=== PATIENT | female | born 1955 | race Caucasian/White ===

== ENCOUNTER 2020-09-14 18:37 | Emergency (ER) | payer MEDICARE, SELFPAY ==
--- NOTE | 2020-09-14 18:53 | ECG_ITS ---
Test Reason : WEAKNESS Blood Pressure : / mmHG Vent. Rate : 093 BPM Atrial Rate : 093 BPM P-R Int : 198 ms QRS Dur : 098 ms QT Int : 384 ms P-R-T Axes : 015 -14 -07 degrees QTc Int : 477 ms Normal sinus rhythm Moderate voltage criteria for LVH, may be normal variant Inferior infarct , age undetermined Abnormal ECG No previous ECGs available Referred By: Eva Castro Electronically Signed By:JEROME MG
--- NOTE | 2020-09-14 18:53 | ED.WEAKNESS ---
HPI - Weakness General Chief complaint: Weakness Stated complaint: MALAISE Time Seen by Provider: 09/14/20 18:46 Source: patient and EMS Mode of arrival: EMS Limitations: altered mental status History of Present Illness HPI Narrative: 65-year-old female diagnosed with ALS in July of 2020 presents with weakness, failure to thrive, and inability to care for herself. She lives at home with her 91-year-old mother who is her day care center director. Patient was diagnosed in July of 2020 with ALS, and has had a rapid progression of symptoms. Patient needs total care which has been provided by her mother. Patient states to be weak, extremely fatigued, and is answering questions in one-word answers. MD Complaint: generalized weakness and lack of energy Onset (ago): month(s) Duration: constant Location: generalized Severity: severe Relieving factors: none Context: other (ALS) Related Data Home Medications Medication Instructions Recorded Confirmed amlodipine 10 mg PO DAILY 09/14/20 09/14/20 conjugated estrogens [Premarin] 0.3 mg PO DAILY 09/14/20 09/14/20 lorazepam 1 mg PO BEDTIME PRN 09/14/20 09/14/20 paroxetine HCl 20 mg PO BEDTIME 09/14/20 09/14/20 Allergies Allergy/AdvReac Type Severity Reaction Status Date / Time No Known Allergies Allergy Verified 09/14/20 18:53 Review of Systems Review of Systems: Yes Unobtainable due to mental condition PMFSH Past Medical History Attestation statement: The following information was validated with the patient. Source: old records reviewed Medical History ALS (amyotrophic lateral sclerosis) Hypertension Social History Social History Alcohol intake: never Smoked in Last 30 Days: No Use of substances other than those prescribed or required for medical reasons: No Advance Directives: No Advance Directives Information Provided: Yes Physical Exam Vital Signs: Vital Signs: Last Vital Signs Temp 98.7 F 09/14/20 21:32 Pulse 90 09/14/20 21:32 Resp 17 09/14/20 21:32 BP 182/95 H 09/14/20 21:32 Pulse Ox 99 09/14/20 21:32 Body Mass Index 31.7 Appearance: Alert. Oriented X 2. Moderate distress. Eyes: Pupils equal, round and reactive to light. ENT: Pharynx normal. Neck: Normal inspection. Neck supple. CVS: Tachycardic heart rate and rhythm. Pulses normal. Respiratory: No respiratory distress. Breath sounds normal. Abdomen: Soft and nontender. Skin: Skin warm and dry. Normal skin color. Normal skin turgor. Extremities: No lower extremity edema. Neuro: Significant motor and sensory deficits secondary to ALS Course Course Course Narrative: 65-year-old female with rapidly progressing ALS and hypertension presents with weakness, failure to thrive and inability to care for herself. Patient's primary day care center director is her 91-year-old mother. Plan of care is for Case Management, social Service, and PT consult for possible alf facility placement. Will order CBC, Chem 7, troponins, and EKG. White count is elevated which could possibly be secondary to her ALS however patient cannot provide history, case discussed with Dr. Ghotra plan is to obtain CT of abdomen and pelvis. CT abdomen pelvis negative for acute findings, COVID is negative. Plan is for hospice care. At 3:00 a.m. sign out to Dr. Ghotra. MDM - Weakness MDM Narrative Medical decision making narrative: ALS, hospice care Medical Records Attestation: I reviewed the patient's medical records. Lab Data Attestation: I reviewed the patient's lab results. Result diagrams: 09/14/20 19:46 09/14/20 19:46 Labs: Lab Results 09/14/20 09/14/20 09/14/20 Range/Units 19:33 19:46 19:46 WBC 16.5 H (4.8-10.8) X10*3/uL RBC 5.59 H (4.20-5.50) X10*6/uL Hgb 15.1 (12.0-16.0) g/dl Hct 44.6 (37-47) % MCV 79.8 L (80-98) fL MCH 27.0 (27.0-33.0) pg MCHC 33.9 (31.0-35.0) g/dl RDW 14.4 (11.0-16.0) % Plt Count 437 H (160-400) X10*3/uL MPV 10.3 (9.4-12.3) fL Immature Gran % (Auto) 0.3 (0.0-0.4) % Neut % (Auto) 83.1 H (45-73) % Lymph % (Auto) 11.0 L (20-40) % [place] % (Auto) 5.4 (2-11) % Eos % (Auto) 0.0 (0-4) % Baso % (Auto) 0.2 (0-2) % Lymph # (Auto) 1.8 (1.2-4.9) X10*3/uL [place] # (Auto) 0.9 (0.1-1.2) X10*3/uL Eos # (Auto) 0.0 (0.0-0.4) X10*3/uL Baso # (Auto) 0.0 (0.0-0.2) X10*3/uL Abs Immat Gran (auto) 0.05 H (0.00-0.03) X10*3/uL Absolute Neuts (auto) 13.7 H (2.0-8.3) X10*3/uL Absolute Nucleated RBC 0.000 (0.0-0.012) X10*3/uL Nucleated RBC % (auto) 0.0 (0.0-0.2) /100WBC PT 13.2 H (10.8-13.0) SEC INR 1.1 (0.9-1.1) APTT 34.7 (24.1-38.0) SEC Sodium (135-145) mmol/L Potassium (3.3-5.1) mmol/L Chloride (96-108) mmol/L Carbon Dioxide (22-29) mmol/L Anion Gap (12-20) BUN (9-16) mg/dL Creatinine (0.5-1.4) mg/dL Estim Creat Clear Calc Estimated GFR POC Glucose 118 H (60-115) mg/dL Random Glucose (60-115) mg/dL Lactic Acid (0.5-2.0) mmol/L Calcium (8.4-10.2) mg/dL Troponin I High Sens (<3.5-17.0) ng/L Urine Color Urine Appearance Urine pH (5.0-8.0) Ur Specific Mobile (1.005-1.025) Urine Protein (NEG-TRACE) MG/DL Urine Glucose (UA) (NEG) MG/DL Urine Ketones (NEG) MG/DL Urine Blood (NEG) Urine Nitrite (NEG) Ur Leukocyte Esterase (NEG) Urine RBC (0) /HPF Urine WBC (0-4) /HPF Ur Squamous Epith Cells /LPF Urine Bacteria /LPF Urine Mucus /LPF Coronavirus (PCR) (Negative) Influenza Type A (PCR) (Negative) Influenza Type B (PCR) (Negative) RSV RNA Qual (PCR) (Negative) 09/14/20 09/14/20 09/14/20 Range/Units 19:46 19:46 19:46 WBC (4.8-10.8) X10*3/uL RBC (4.20-5.50) X10*6/uL Hgb (12.0-16.0) g/dl Hct (37-47) % MCV (80-98) fL MCH (27.0-33.0) pg MCHC (31.0-35.0) g/dl RDW (11.0-16.0) % Plt Count (160-400) X10*3/uL MPV (9.4-12.3) fL Immature Gran % (Auto) (0.0-0.4) % Neut % (Auto) (45-73) % Lymph % (Auto) (20-40) % [place] % (Auto) (2-11) % Eos % (Auto) (0-4) % Baso % (Auto) (0-2) % Lymph # (Auto) (1.2-4.9) X10*3/uL [place] # (Auto) (0.1-1.2) X10*3/uL Eos # (Auto) (0.0-0.4) X10*3/uL Baso # (Auto) (0.0-0.2) X10*3/uL Abs Immat Gran (auto) (0.00-0.03) X10*3/uL Absolute Neuts (auto) (2.0-8.3) X10*3/uL Absolute Nucleated RBC (0.0-0.012) X10*3/uL Nucleated RBC % (auto) (0.0-0.2) /100WBC PT (10.8-13.0) SEC INR (0.9-1.1) APTT (24.1-38.0) SEC Sodium 141 (135-145) mmol/L Potassium 3.7 (3.3-5.1) mmol/L Chloride 101 (96-108) mmol/L Carbon Dioxide 26 (22-29) mmol/L Anion Gap 18 (12-20) BUN 15 (9-16) mg/dL Creatinine 0.76 (0.5-1.4) mg/dL Estim Creat Clear Calc 76.2 Estimated GFR > 60 POC Glucose (60-115) mg/dL Random Glucose 114 (60-115) mg/dL Lactic Acid (0.5-2.0) mmol/L Calcium 9.9 (8.4-10.2) mg/dL Troponin I High Sens 21.5 H (<3.5-17.0) ng/L Urine Color Urine Appearance Urine pH (5.0-8.0) Ur Specific Mobile (1.005-1.025) Urine Protein (NEG-TRACE) MG/DL Urine Glucose (UA) (NEG) MG/DL Urine Ketones (NEG) MG/DL Urine Blood (NEG) Urine Nitrite (NEG) Ur Leukocyte Esterase (NEG) Urine RBC (0) /HPF Urine WBC (0-4) /HPF Ur Squamous Epith Cells /LPF Urine Bacteria /LPF Urine Mucus /LPF Coronavirus (PCR) NEGATIVE (Negative) Influenza Type A (PCR) NEGATIVE (Negative) Influenza Type B (PCR) NEGATIVE (Negative) RSV RNA Qual (PCR) NEGATIVE (Negative) 09/14/20 09/14/20 09/14/20 Range/Units 19:48 22:36 22:36 WBC (4.8-10.8) X10*3/uL RBC (4.20-5.50) X10*6/uL Hgb (12.0-16.0) g/dl Hct (37-47) % MCV (80-98) fL MCH (27.0-33.0) pg MCHC (31.0-35.0) g/dl RDW (11.0-16.0) % Plt Count (160-400) X10*3/uL MPV (9.4-12.3) fL Immature Gran % (Auto) (0.0-0.4) % Neut % (Auto) (45-73) % Lymph % (Auto) (20-40) % [place] % (Auto) (2-11) % Eos % (Auto) (0-4) % Baso % (Auto) (0-2) % Lymph # (Auto) (1.2-4.9) X10*3/uL [place] # (Auto) (0.1-1.2) X10*3/uL Eos # (Auto) (0.0-0.4) X10*3/uL Baso # (Auto) (0.0-0.2) X10*3/uL Abs Immat Gran (auto) (0.00-0.03) X10*3/uL Absolute Neuts (auto) (2.0-8.3) X10*3/uL Absolute Nucleated RBC (0.0-0.012) X10*3/uL Nucleated RBC % (auto) (0.0-0.2) /100WBC PT (10.8-13.0) SEC INR (0.9-1.1) APTT (24.1-38.0) SEC Sodium (135-145) mmol/L Potassium (3.3-5.1) mmol/L Chloride (96-108) mmol/L Carbon Dioxide (22-29) mmol/L Anion Gap (12-20) BUN (9-16) mg/dL Creatinine (0.5-1.4) mg/dL Estim Creat Clear Calc Estimated GFR POC Glucose (60-115) mg/dL Random Glucose (60-115) mg/dL Lactic Acid 1.4 (0.5-2.0) mmol/L Calcium (8.4-10.2) mg/dL Troponin I High Sens 20.6 H (<3.5-17.0) ng/L Urine Color YELLOW Urine Appearance CLEAR Urine pH 6.5 (5.0-8.0) Ur Specific Mobile >= 1.030 H (1.005-1.025) Urine Protein 2+ H (NEG-TRACE) MG/DL Urine Glucose (UA) NEG (NEG) MG/DL Urine Ketones 40 (NEG) MG/DL Urine Blood 3+ H (NEG) Urine Nitrite NEG (NEG) Ur Leukocyte Esterase NEG (NEG) Urine RBC 50-75 H (0) /HPF Urine WBC 0-2 (0-4) /HPF Ur Squamous Epith Cells 4+ /LPF Urine Bacteria 1+ /LPF Urine Mucus 1+ /LPF Coronavirus (PCR) (Negative) Influenza Type A (PCR) (Negative) Influenza Type B (PCR) (Negative) RSV RNA Qual (PCR) (Negative) Imaging Data CT scan of chest and abdomen: Attestation: I personally reviewed and interpreted this imaging study as follows: Radiologist's impression: EXAMINATION: CT CHEST, ABDOMEN AND PELVIS WITH CONTRAST CLINICAL INFORMATION: Reason for Exam weakness, leukocytosis, ALS COMPARISON: Chest x-ray earlier the same day. TECHNIQUE: Multidetector volumetric imaging was performed from the thoracic inlet through the pubic symphysis following the uneventful administration of: Oral contrast: No Intravenous contrast: 85 mL Omnipaque 350 Sagittal and coronal reformatted images were obtained on the technologist workstation. This CT examination was performed using dose optimization techniques as appropriate, variously including the following: *Automated exposure control *Adjustment of mA and/or kV according to patient size (this includes techniques or standardized protocols for targeted exams where dose is matched to indication/reason for exam; i.e. extremities or head) *Use of iterative reconstruction technique Total exam dose-length product 1126 mGy-cm FINDINGS: CHEST: There is respiratory motion throughout the chest. LUNG: Mild centrilobular emphysema most notable at the lung apices. There are patchy opacities in the lung bases, particularly the right posterior costophrenic sulcus as well as the posterior aspects of the upper lobes, favor atelectasis. No dense focal consolidation. MEDIASTINUM: No hilar or mediastinal lymphadenopathy. Mild cardiomegaly. Normal caliber thoracic aorta. No pericardial effusion. PLEURA: No significant effusion. No pleural mass or thickening. CHEST WALL/AXILLA: No axillary or internal mammary lymphadenopathy. ABDOMEN/PELVIS: There is respiratory motion throughout the scan of the abdomen and pelvis limiting evaluation for subtle abnormalities. LIVER, GALLBLADDER, AND BILIARY TREE: The liver is normal in size, shape, and attenuation. No focal hepatic lesion or biliary ductal dilatation is present. The gallbladder is unremarkable with no evidence of radiopaque gallstones, gallbladder wall thickening, or obvious pericholecystic inflammatory changes. PANCREAS: Normal; no mass or surrounding fluid. SPLEEN: Normal size. No focal lesion. ADRENAL GLANDS: Normal; no mass. KIDNEYS AND URETERS: There are nonobstructing left lower pole renal calculi up to a 7 mm. Likely left parapelvic cysts. No solid renal mass. No hydroureter. GASTROINTESTINAL TRACT: Stomach and small bowel are nondilated. Motion artifact limits evaluation of the appendix but it appears grossly normal. There is no right lower quadrant fluid or inflammatory changes. No colonic wall thickening or pericolonic inflammatory changes to suggest colitis or diverticulitis. ABDOMINAL WALL: No significant hernia is appreciated. LYMPHOVASCULAR STRUCTURES: No lymphadenopathy. The aorta is unremarkable. BLADDER: No focal mass or wall thickening seen. No bladder calculi. PELVIC VISCERA: Uterus not seen likely surgically absent. No adnexal mass OSSEOUS STRUCTURES: Grade 1 anterolisthesis L4 on L5. Degenerative disc disease greatest at L5-S1. Severe lower lumbar facet arthropathy. No acute or suspicious osseous abnormality. CT/CT chest w con IMPRESSION: Respiratory motion artifact limits evaluation. There is likely atelectasis in the lungs. No evidence of acute pulmonary disease. Nonobstructing left lower pole renal calculi at most [address] findings in the abdomen or pelvis. Chest x-ray: Attestation: I personally reviewed and interpreted this imaging study as follows: Radiologist's impression: EXAMINATION: XR CHEST CLINICAL INFORMATION: Weakness COMPARISON: None TECHNIQUE: Frontal view of the chest was obtained. FINDINGS: Lung volumes are low. There is bibasilar atelectasis. No focal consolidation or mass. No pleural effusion or pneumothorax. Normal heart size. Mildly tortuous aorta. There are degenerative changes of the right acromioclavicular joint. XR/XR chest 1V IMPRESSION: Low lung volumes and bibasilar atelectasis but no acute pulmonary disease. ECG Data Attestation: I personally reviewed and interpreted this ECG as follows: ECG interpretation date: 09/14/20 ECG interpretation time: 19:27 Interpretation: Vent. rate 93 BPM MI interval 198 ms QRS duration 98 ms QT/QTc 384/477 ms P-R-T axes 15 -14 -7 Normal sinus rhythm Moderate voltage criteria for LVH, may be normal variant Inferior infarct , age undetermined Abnormal ECG No previous ECGs available Discharge Plan Discharge Clinical Impression: ALS (amyotrophic lateral sclerosis) Prescriptions: No Action amlodipine 10 mg Tablet 10 mg PO DAILY RF: 0 paroxetine HCl 20 mg Tablet 20 mg PO BEDTIME RF: 0 lorazepam 1 mg Tablet 1 mg PO BEDTIME PRN (Reason: Insomnia) RF: 0 Premarin 0.3 mg Tablet 0.3 mg PO DAILY RF: 0
[2020-09-14 18:54] VITALS: BP 191/110; PULSE 104; RESP 18; TEMP 36.7; O2SAT 96; BMI 31.7
[2020-09-14 19:38] VITALS: TEMP 37.1
[2020-09-14] MEDS: 0.9 % Sodium Chloride 1,000 ML 999 ML IVCONT ×3 (19:48→23:30)
--- NOTE | 2020-09-14 19:48 | PC.NURSE ---
[phone] maria dolores (mother) [phone] agus sister
[2020-09-14 19:52] LABS: Glucose, Whole Blood 118 mg/dL (60-115)
[2020-09-14 19:54] LABS: MANUAL DIFF FLAG NO
[2020-09-14 19:55] LABS: Basophils Percent Auto 0.2 % (0-2); Hematocrit 44.6 % (37-47); Hemoglobin 15.1 g/dl (12.0-16.0); Imm Gran Abs Auto 0.05 X10*3/uL (0.00-0.03); Imm Gran Pct Auto 0.3 % (0.0-0.4); Lymphocytes Absolute Auto 1.8 X10*3/uL (1.2-4.9); Mean Corpuscular HGB Conc 33.9 g/dl (31.0-35.0); Mean Corpuscular Volume 79.8 fL (80-98); Mean Platelet Volume 10.3 fL (9.4-12.3); Monocytes Absolute Auto 0.9 X10*3/uL (0.1-1.2); Monocytes Percent Auto 5.4 % (2-11); Neutrophils Absolute Auto 13.7 X10*3/uL (2.0-8.3); Neutrophils Percent Auto 83.1 % (45-73); Platelet Count 437 X10*3/uL (160-400); Red Blood Count 5.59 X10*6/uL (4.20-5.50); Red Cell Distribution Width 14.4 % (11.0-16.0); White Blood Count 16.5 X10*3/uL (4.8-10.8)
[2020-09-14 19:56] LABS: Glucose Urine UA NEG (NEG); Leukocyte Esterase Urine NEG (NEG); Nitrite Urine NEG (NEG); PH 6.5 (5.0-8.0); Specific Gravity - Urine >= 1.030 (1.005-1.025); Urine Blood 3+ (NEG); Urine Ketones 40 MG/DL (NEG); Urine Protein 2+ MG/DL (NEG-TRACE)
[2020-09-14 19:57] LABS: Appearance Urine CLEAR; Color Urine YELLOW
[2020-09-14 20:01] LABS: INTERNATIONAL NORM RATIO 1.1 (0.9-1.1); Prothrombin Time 13.2 SEC (10.8-13.0)
[2020-09-14 20:03] LABS: Partial Thromboplastin Time 34.7 SEC (24.1-38.0)
[2020-09-14 20:04] LABS: Bacteria Urine 1+ /LPF; Mucus Urine 1+ /LPF; RBC Urine 50-75 /HPF (0); Squamous Epithelial Cell Urine 4+ /LPF; WBC Urine 0-2 /HPF (0-4)
[2020-09-14 20:22] LABS: Anion Gap 18 (12-20); Blood Urea Nitrogen 15 mg/dL (9-16); Calcium 9.9 mg/dL (8.4-10.2); Carbon Dioxide 26 mmol/L (22-29); Chloride 101 mmol/L (96-108); Creatinine Clr Calc Pharmacy 76.2; Estimated Glomerular Filt Rate > 60; Glucose Random 114 mg/dL (60-115); Potassium 3.7 mmol/L (3.3-5.1); Sodium 141 mmol/L (135-145)
[2020-09-14 20:35] LABS: Influenza A PCR NEGATIVE (Negative); Influenza B PCR NEGATIVE (Negative); Resp Syncy Virus RNA Qual PCR NEGATIVE (Negative); SARS COV2 PCR INHOUSE NEGATIVE (Negative)
[2020-09-14 20:38] LABS: Troponin-I High Sensitivity 21.5 ng/L (<3.5-17.0)
[2020-09-14 21:24] VITALS: BP 197/87; PULSE 89; RESP 18; O2SAT 97
--- NOTE | 2020-09-14 21:29 | PC.NURSE ---
pt very sleepy, very hard to arouse. spoke to agus who is the sister who stated she has been like that today. feels as though her ALS decompensation is becoming worse. Would like to have hospice or palliative care at home versus going to facility due to impending end of life. updated family who is reqeusting for update in AM. Aware she will be staying overnight.
[2020-09-14 21:32] VITALS: BP 182/95; PULSE 90; RESP 17; TEMP 37.1; O2SAT 99
--- NOTE | 2020-09-14 21:41 | CT_ITS ---
EXAMINATION: CT CHEST, ABDOMEN AND PELVIS WITH CONTRAST CLINICAL INFORMATION: Reason for Exam weakness, leukocytosis, ALS COMPARISON: Chest x-ray earlier the same day. TECHNIQUE: Multidetector volumetric imaging was performed from the thoracic inlet through the pubic symphysis following the uneventful administration of: Oral contrast: No Intravenous contrast: 85 mL Omnipaque 350 Sagittal and coronal reformatted images were obtained on the technologist workstation. This CT examination was performed using dose optimization techniques as appropriate, variously including the following: *Automated exposure control *Adjustment of mA and/or kV according to patient size (this includes techniques or standardized protocols for targeted exams where dose is matched to indication/reason for exam; i.e. extremities or head) *Use of iterative reconstruction technique Total exam dose-length product 1126 mGy-cm FINDINGS: CHEST: There is respiratory motion throughout the chest. LUNG: Mild centrilobular emphysema most notable at the lung apices. There are patchy opacities in the lung bases, particularly the right posterior costophrenic sulcus as well as the posterior aspects of the upper lobes, favor atelectasis. No dense focal consolidation. MEDIASTINUM: No hilar or mediastinal lymphadenopathy. Mild cardiomegaly. Normal caliber thoracic aorta. No pericardial effusion. PLEURA: No significant effusion. No pleural mass or thickening. CHEST WALL/AXILLA: No axillary or internal mammary lymphadenopathy. ABDOMEN/PELVIS: There is respiratory motion throughout the scan of the abdomen and pelvis limiting evaluation for subtle abnormalities. LIVER, GALLBLADDER, AND BILIARY TREE: The liver is normal in size, shape, and attenuation. No focal hepatic lesion or biliary ductal dilatation is present. The gallbladder is unremarkable with no evidence of radiopaque gallstones, gallbladder wall thickening, or obvious pericholecystic inflammatory changes. PANCREAS: Normal; no mass or surrounding fluid. SPLEEN: Normal size. No focal lesion. ADRENAL GLANDS: Normal; no mass. KIDNEYS AND URETERS: There are nonobstructing left lower pole renal calculi up to a 7 mm. Likely left parapelvic cysts. No solid renal mass. No hydroureter. GASTROINTESTINAL TRACT: Stomach and small bowel are nondilated. Motion artifact limits evaluation of the appendix but it appears grossly normal. There is no right lower quadrant fluid or inflammatory changes. No colonic wall thickening or pericolonic inflammatory changes to suggest colitis or diverticulitis. ABDOMINAL WALL: No significant hernia is appreciated. LYMPHOVASCULAR STRUCTURES: No lymphadenopathy. The aorta is unremarkable. BLADDER: No focal mass or wall thickening seen. No bladder calculi. PELVIC VISCERA: Uterus not seen likely surgically absent. No adnexal mass OSSEOUS STRUCTURES: Grade 1 anterolisthesis L4 on L5. Degenerative disc disease greatest at L5-S1. Severe lower lumbar facet arthropathy. No acute or suspicious osseous abnormality. CT/CT abdomen pelvis w con IMPRESSION: Respiratory motion artifact limits evaluation. There is likely atelectasis in the lungs. No evidence of acute pulmonary disease. Nonobstructing left lower pole renal calculi at most [address] findings in the abdomen or pelvis.
--- NOTE | 2020-09-14 21:41 | PC.NURSE ---
pt repositioned in bed, pure wick applied. skin on back and rear intact. no reddness.
--- NOTE | 2020-09-14 21:59 | PC.NURSE ---
pt to imaging, plan for blood cultures x 2 lactic fluids and antibiotic upon return
[2020-09-14] MEDS: iohexoL 350 MG/ML 100 ML INFUS..BTL 85 ML IV (22:31)
[2020-09-14] MEDS: cefTRIAXone sodium 1 GM in 0.9 % Sodium Chloride 50 ML IV (22:39)
[2020-09-14 23:05] LABS: Lactic Acid 1.4 mmol/L (0.5-2.0)
[2020-09-14 23:22] LABS: Troponin-I High Sensitivity 20.6 ng/L (<3.5-17.0)
[2020-09-15] VITALS (8 sets, daily range): BP systolic 125–176; BP diastolic 71–90; PULSE 87–96; RESP 15–20; TEMP 36.5–37.1; O2SAT 2–98
--- NOTE | 2020-09-15 03:37 | PC.NURSE ---
PATIENT WAS CHANGE AND REPOSITION BY JAKE ESCUDERO AND MYSELF
[2020-09-15 03:48] LABS: Glucose, Whole Blood 97 mg/dL (60-115)
[2020-09-15 06:50] LABS: Glucose, Whole Blood 95 mg/dL (60-115)
--- NOTE | 2020-09-15 10:18 | MHC.CM.PN ---
PT IN ED W/WEAKNESS, TO CARE FOR SELF AND ALS. PT UNABLE TO PARTICIPATE IN ASSESSMENT DUE TO LETHARGY AND DIFFICULTY WITH SPEECH, CM SPOKE WITH PT'S SISTER JUAN CARLOS WHO REPORTS SHE IS PT'S HCP, PER SISTER PT LIVES IN A SECOND FLOOR APT AND PT'S 92YO MOTHER LIVES ON FIRST FLOOR, SISTER ARRIVED FROM [place] ON 09/14/20 WHEN AMBULANCE WAS THERE, PT'S MOTHER CALLED AMBULANCE DUE TO PT NOT COMING DOWN STAIRS OR ANSWERING PHONE ALL DAY, PT WAS LETHARGIC, UNABLE TO WALK OR MOVE AND WAS INCONTINENT, PRIOR TO THAT PT WAS AMBULATORY, ALERT AND TOOK CARE OF HER NEEDS ALTHOUGH ABILITY TO CARE FOR SELF APPEARED TO BE DECLINING. PT HAS NO SERVICES AT HOME AND NO DME, PT'S MOTHER AND SISTER ARE UNABLE TO PHYSICALLY CARE FOR PT AND WOULD LIKE TO SET UP [facility] CARE AND HOSPICE FOR PT AT HOME, CM DISCUSSED OPTION TO SEND PT TO SNF FOR RESPITE UNTIL FAMILY HAS SET UP AT HOME. SISTER/HCP IS AGREEABLE TO THIS PLAN, CM SENT REFERRALS FOR HOSPICE AND [facility], [facility], HOSPICE REFERRAL SENT TO [facility]. HCP: JUAN CARLOS (SISTER) [phone] ALTERNATE: CARISSA REYES (FRIEND) PCP: DR ALVAREZ, [facility]
--- NOTE | 2020-09-15 10:25 | PC.NURSE ---
pt found sleeping, easily arousable to voice. vs as charted. pt with pending consult for ALS progression. repositioned for better airway and WOB. Denies pain at this time
--- NOTE | 2020-09-15 11:38 | PC.NURSE ---
SPOKE WITH CASE MANAGEMENT PLAN FOR PT TO GO TO SNIFF ON HOSPICE CARE
--- NOTE | 2020-09-15 13:32 | MHC.CM.PN ---
Addendum entered by Shelley Palacios 09/15/20 19:03: 11am Original Note: PT WILL DISCHARGE TOMORROW 09/16/20 AT 11 PM WITH HOSPICE THROUGH [facility] AND [facility] WITH [facility] AND BLS TRANSPORTATION, SISTER/HCP JUAN CARLOS AWARE OF TRANSPORT TIME. PER COVERING ED PA, SISTER MAY COME TO VISIT FOR 1 HOUR, SISTER CALLED AND WILL COME IN AFTER HOSPITAL BED IS DELIVERED BETWEEN 2-5PM TODAY 09/15/20.
--- NOTE | 2020-09-15 14:30 | PC.NURSE ---
pt incontinent of urine, changed over and new pyruic placed, and pt placed on her right side to take pressure of her coccyz area.
[2020-09-15] MEDS: PARoxetine HCL 20 MG TABLET PO (20:57)
--- NOTE | 2020-09-15 22:07 | PC.NURSE ---
patient a and o 4. pt given water. tolerated well. patient denies needs, such as pain management, tolieting, or repositioning. linens checked and are intact and dry. Periwick in place.
[2020-09-16] VITALS: BP 176/81; PULSE 90; RESP 16; O2SAT 96
[2020-09-16 08:33] VITALS: BP 166/103; PULSE 90; RESP 16; O2SAT 97
[2020-09-16 11:18] VITALS: BP 169/109; PULSE 101
[2020-09-16] MEDS: amLODIPine Besylate 10 MG TABLET PO (11:18)
[2020-09-16 11:20] VITALS: BP 169/101; PULSE 101; RESP 16
== END 2020-09-16 11:29 | disposition home or self-care (01) ==
PROVIDERS: Nurse Practitioner Family; Emergency Provider Internal Medicine
DX: G12.21 Amyotrophic lateral sclerosis (principal); R53.1 Weakness; R62.7 Adult failure to thrive; D72.829 Elevated white blood cell count, unspecified; J98.11 Atelectasis; N20.0 Calculus of kidney; I10 Essential (primary) hypertension; Z51.5 Encounter for palliative care; Z20.822 Contact with and (suspected) exposure to COVID-19
CPT/HCPCS: 0241U; 36415; 71045; 71260; 74177; 80048; 81001; 82947; 83605; 84484; 85025; 85610; 85730; 87040; 93005; 97162; 99285; J0696; Q9967

== ENCOUNTER 2020-11-01 11:26 | Outpatient (REF) | payer MEDICARE, SELFPAY | END 2020-11-01 11:27 | disposition home or self-care (01) | LOC: HO.LNP 11:26 | PROVIDERS: Visit Provider Internal Medicine Hematology & Oncology | DX: Z20.822 Contact with and (suspected) exposure to COVID-19 (principal) | CPT/HCPCS: U0003; U0005 ==